=== PATIENT | male | born 1960 | race Caucasian/White ===

== ENCOUNTER 2018-06-22 10:53 | Day surgery (SDC) | payer BC ==
[2018-06-21 14:28] VITALS: BMI 27.1
[2018-06-22] MEDS ORDERED: Bacitracin Zinc Ointment 30 gm TUBE ONE (11:45)
[2018-06-22] MEDS ORDERED: Lidocaine 1% w/Epinephrine 1:100K 20 ML VIAL ONE (11:45)
[2018-06-22] MEDS ORDERED: Oxymetazoline HCl 0.05% ( 15 ML ) ONE ×2 (11:45→12:23)
[2018-06-22] MEDS ORDERED: Midazolam HCl 2 mg/2 ml Vial ONE (11:54)
[2018-06-22] MEDS ORDERED: Fentanyl 100 MCG/2 ML VIAL ONE ×2 (11:54→14:10)
[2018-06-22] MEDS ORDERED: Rocuronium Bromide 10 MG/ML (10ML VIAL) ONE (15:16)
[2018-06-22] MEDS ORDERED: Lidocaine 1% PF 5 ML VIAL ONE (15:16)
[2018-06-22] MEDS ORDERED: Glycopyrrolate 0.2 MG/ML 5 ML SYRINGE ONE (15:16)
[2018-06-22] MEDS ORDERED: Dexamethasone 20 MG/5 ML VIAL ONE (15:16)
[2018-06-22] MEDS ORDERED: PROPOFOL 200 MG/20 ML VIAL ONE (15:16)
[2018-06-22] MEDS ORDERED: Ondansetron PF 4 MG/2 ML Vial ONE (15:16)
[2018-06-22] MEDS ORDERED: Hydrocodone-Acetamin 15 ML UDCUP ONE (15:21)
--- NOTE | 2018-06-22 21:03 | OP ---
DATE OF PROCEDURE: 06/22/2018 PREOPERATIVE DIAGNOSES: 1. Chronic rhinosinusitis. 2. Nasal septal deviation. 3. Bilateral inferior turbinate hypertrophy. 4. Nasal obstruction. POSTOPERATIVE DIAGNOSES: 1. Chronic rhinosinusitis. 2. Nasal septal deviation. 3. Bilateral inferior turbinate hypertrophy. 4. Nasal obstruction. PROCEDURES PERFORMED: 1. Bilateral endoscopic sinus surgery total ethmoidectomies. 2. Bilateral endoscopic sinus surgery maxillary antrostomies. 3. Bilateral endoscopic sinus surgery frontal sinusotomy. 4. Bilateral endoscopic sinus surgery sphenoidotomies. 5. Nasal septoplasty. 6. Bilateral inferior turbinate submucosal resection. ESTIMATED BLOOD LOSS: 50 mL. COMPLICATIONS: None. ANESTHESIA: [employer]ILS [employer]. DESCRIPTION OF PROCEDURE: Patient was taken to the operating room and placed supine on the table. General endotracheal anesthesia was obtained by the anesthesia staff. Tube was secured in the left lower lip. Patient was then placed in the beach chair position, and Afrin pledgets were placed in the nasal cavity. Injections of 1% lidocaine with 1:100,000 epinephrine were made into the nasal septum as well as the inferior turbinates. Patient was then prepped and draped in standard surgical fashion for nasal surgery. Following this, the Afrin pledgets were removed. A Chadwick incision was made on the left nasal septum. Submucoperichondrial dissection was performed. The deviated portions of the septum included portions of the cartilage and the bony septum. These isolated areas were removed using 3 cutting rongeurs. There was noted to be a large dorsal and caudal strut, left intact for support of the nose. The mucoperichondrial flaps were then reapproximated using a 4-0 gut stitch. Any straight pieces of cartilage were crushed prior to this and placed between the mucoperichondrial flaps. Following this, the inferior turbinates were then punctured with a submucosal coblation wand, and submucosal coblations were performed of multiple areas of the inferior portion of the anterior inferior turbinate. Please note that the submucosal microdebrider was used to submucosally resect the anterior and inferior portions of the inferior turbinates bilaterally. Following this, the inferior turbinates were laterally fractured using a Stanton elevator. Following this, the 0-degree endoscope was advanced into the nasal cavity. The middle turbinates were gently medialized using a Stanton elevator and the uncinate process was visualized bilaterally. Following this, the uncinate process was anteriorly fractured using a ball-ended probe bilaterally. Following this, the uncinate process was removed using the 0-degree microdebrider and up-biting Blakesley forceps bilaterally. Following this, the natural maxillary sinus ostia was identified and was widened using the curved microdebrider and straight Blakesley forceps bilaterally. Following this, the ethmoidal bulla was identified and was punctured on its medial and inferior aspect using the 0-degree microdebrider and the ethmoidal bulla was opened and removed using the straight microdebrider and the upbiting Blakesley forceps. Following this, the grand lamella was identified bilaterally and was punctured into the posterior ethmoidal cells working from posterior to anterior. The ethmoidal cells were opened using the straight microdebrider and up-biting Blakesley forceps. Following this, the sphenoid sinuses were approached through the previous ethmoidectomies, where the sphenoid sinus ostia, which was noted to be stenotic and narrowed bilaterally was widened with the 0-degree microdebrider. The sphenoidotomies were widened medially and inferiorly using the 0-degree microdebrider bilaterally. Following this, the 45-degree scope and the curved microdebrider were used to further open the frontal sinus ostia and frontal sinus recess bilaterally. Following this, the nasal cavity was irrigated. Mirapex was placed within the middle meatus. The patient tolerated the procedure well. Job ID: [id number]
--- NOTE | 2018-06-23 07:49 | EKG ---
Test Reason : PREOP Blood Pressure : / mmHG Vent. Rate : 070 BPM Atrial Rate : 070 BPM P-R Int : 150 ms QRS Dur : 074 ms QT Int : 384 ms P-R-T Axes : 026 010 016 degrees QTc Int : 414 ms Normal sinus rhythm Possible Inferior infarct , age undetermined (doubtful) Abnormal ECG No previous ECGs available Confirmed by KITTY CORLEY ([id number]) on 06/23/2018 7:48:52 AM Referred By: LAWSON Confirmed By:KITTY CORLEY
== END 2018-06-22 16:05 | disposition home or self-care (01) ==
LOC: SDC 10:53
PROVIDERS: ATTEND Otolaryngology Plastic Surgery within the Head & Neck
PROC: 099X8ZZ Drainage of Left Sphenoid Sinus, Via Natural or Artificial Opening Endoscopic (ICD-10-PCS; principal; 2018-06-22)
PROC: 099S8ZZ Drainage of Right Frontal Sinus, Via Natural or Artificial Opening Endoscopic (ICD-10-PCS; principal; 2018-06-22)
PROC: 099Q8ZZ Drainage of Right Maxillary Sinus, Via Natural or Artificial Opening Endoscopic (ICD-10-PCS; principal; 2018-06-22)
PROC: 09TU8ZZ Resection of Right Ethmoid Sinus, Via Natural or Artificial Opening Endoscopic (ICD-10-PCS; principal; 2018-06-22)
PROC: 09SM0ZZ Reposition Nasal Septum, Open Approach (ICD-10-PCS; principal; 2018-06-22)
PROC: 099R8ZZ Drainage of Left Maxillary Sinus, Via Natural or Artificial Opening Endoscopic (ICD-10-PCS; principal; 2018-06-22)
PROC: 09TV8ZZ Resection of Left Ethmoid Sinus, Via Natural or Artificial Opening Endoscopic (ICD-10-PCS; principal; 2018-06-22)
PROC: 09TL7ZZ Resection of Nasal Turbinate, Via Natural or Artificial Opening (ICD-10-PCS; principal; 2018-06-22)
PROC: 099T8ZZ Drainage of Left Frontal Sinus, Via Natural or Artificial Opening Endoscopic (ICD-10-PCS; principal; 2018-06-22)
PROC: 099W8ZZ Drainage of Right Sphenoid Sinus, Via Natural or Artificial Opening Endoscopic (ICD-10-PCS; principal; 2018-06-22)
DX: J32.9 Chronic sinusitis, unspecified (principal); J34.2 Deviated nasal septum; J34.3 Hypertrophy of nasal turbinates; J34.89 Other specified disorders of nose and nasal sinuses; I10 Essential (primary) hypertension; K50.90 Crohn's disease, unspecified, without complications; J30.1 Allergic rhinitis due to pollen; F17.290 Nicotine dependence, other tobacco product, uncomplicated; K13.70 Unspecified lesions of oral mucosa; R42 Dizziness and giddiness; Z79.899 Other long term (current) drug therapy
CPT/HCPCS: 93005; 93010; J0131; J1100; J2001; J2250; J2405; J2704; J3010